=== PATIENT | female | born 1940 | race Caucasian/White ===

== ENCOUNTER 2017-04-12 10:07 | Emergency (ER) | payer MEDICARE, OTHER ==
[~2017-04-12] VITALS: Ht 165.1 cm; Wt 72.6 kg
--- NOTE | 2017-04-12 10:30 | NUR ---
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 SHE IS A/A/O X3.
[2017-04-12] MEDS ORDERED: VENL75CA62 PO (10:43)
[2017-04-12] MEDS ORDERED: DOCU100C36 PO (10:43)
[2017-04-12] MEDS ORDERED: PANT40TA4 PO (10:43)
[2017-04-12] MEDS ORDERED: ATOR10TA PO (10:43)
[2017-04-12] MEDS ORDERED: HYDR-3326 PO (10:43)
[2017-04-12] MEDS ORDERED: POLY255P2 PO (10:43)
[2017-04-12] MEDS ORDERED: LORA0.5T PO (10:43)
[2017-04-12] MEDS ORDERED: ASPI81TA31 PO (10:43)
[2017-04-12] MEDS ORDERED: DONE23TA3 PO (10:43)
[2017-04-12] MEDS ORDERED: [UNRECOGNIZED DRUG - CODE] TP (10:43)
[2017-04-12] MEDS ORDERED: DIVA500T54 PO (10:43)
[2017-04-12] MEDS ORDERED: MAG355OR42 PO (10:43)
[2017-04-12] MEDS ORDERED: ACET-73 PO (10:43)
[2017-04-12] MEDS ORDERED: GUAI120S17 PO (10:43)
[2017-04-12] MEDS ORDERED: TRAZ-147 PO (10:43)
[2017-04-12] MEDS ORDERED: LOSA50TA21 PO (10:43)
[2017-04-12] MEDS ORDERED: NEOM15OI3 TP (10:43)
[2017-04-12] MEDS ORDERED: LOPE1LIQ63 PO ×2 (10:43→10:45)
[2017-04-12] MEDS ORDERED: POTA10TA15 PO (10:43)
[2017-04-12 10:58] LABS: BASOPHILS # (AUTO) 0.3 K/uL (0.0-8.0); BASOPHILS % (AUTO) 3.4 % (0.0-2.0); EOSINOPHILS # (AUTO) 0.1 K/uL (0.0-0.7); EOSINOPHILS % (AUTO) 1.4 % (0.0-7.0); HEMATOCRIT 40.4 % (37-47); HEMOGLOBIN 13.2 G/DL (12.0-16.0); LYMPHOCYTES # (AUTO) 1.4 K/UL (0.8-4.8); LYMPHOCYTES % (AUTO) 18.4 % (20.5-51.5); MEAN CORPUSCULAR HEMOGLOBIN 28.7 UUG (27.0-31.0); MEAN CORPUSCULAR HGB CONC 33 g/dL (32.0-37.0); MONOCYTES # (AUTO) 0.5 K/UL (0.1-1.30); MONOCYTES % (AUTO) 6.4 % (0.0-11.0); NEUTROPHILS # (AUTO) 5.3 K/UL (1.8-8.9); NEUTROPHILS % (AUTO) 70.4 % (38.5-71.5); PLATELET COUNT (AUTO) 249 K/UL (150-450); RED BLOOD CELL COUNT(AUTO) 4.59 MIL/UL (4.2-5.4); WHITE BLOOD COUNT (AUTO) 7.6 K/UL (4.0-11.2)
[2017-04-12 11:08] LABS: CARBON DIOXIDE 33 mmol/L (21-32); CHLORIDE 102 mmol/L (98-107); CREATININE 1.4 mg/dL (0.6-1.3); GLUCOSE 110 mg/dL (74-106); POTASSIUM 3.6 mmol/L (3.5-5.1); UREA NITROGEN, BLOOD 25 mg/dL (7-18)
[2017-04-12 11:19] LABS: ALANINE AMINOTRANSFERASE 19 U/L (14-59); ALKALINE PHOSPHATASE 98 U/L (50-136); ASPARTATE AMINOTRANSFERASE 27 U/L (15-37); BILIRUBIN,DIRECT 0.1 mg/dL (0.0-0.2); BILIRUBIN,TOTAL 0.4 mg/dL (0.2-1.0); TOTAL PROTEIN, SERUM 7.4 g/dL (6.4-8.2)
--- NOTE | 2017-04-12 12:20 | NUR ---
AWAITING TEST RESULTS. PATIENT IS AWAKE AND ALERT WITH NO NEW COMPLAINTS.
[2017-04-12] MEDS ORDERED: IV NORMAL SALINE 1000 ML BAG IV ONE (12:30)
[2017-04-12] MEDS ORDERED: IV NORMAL SALINE 250 ML IV ONE (13:36)
[2017-04-12] MEDS ORDERED: IOHEXOL 350 100 ML INFUS..BTL ONE (13:36)
[2017-04-12] MEDS ORDERED: NORMAL SALINE FLUSH 10 ML DISP.SYRIN ONE (13:36)
--- NOTE | 2017-04-12 13:50 | NUR ---
PATIENT HAS A WELL WORKING IV IN HER HAND, BUT MICROCHIP SPECIALIST RAMONA STATES THE IV IS TOO SMALL (ITS A 22G) AND IT CANNOT BE IN THE HAND. I TRIED THREE TIMES TO PLACE A LARGER ONE IN HER UPPER ARM BUT WAS UNSUCCESSFUL. BARTOLOME RUSH LVN WAS ABLE TO PLACE A 22G IN HER RIGHT ARM RIGHT BELOW THE AC.
--- NOTE | 2017-04-12 14:34 | NUR ---
PATIENT'S ARM (SKIN) NEAR THE SECOND IV WHERE IV CONTRAST WAS INJECTED IS SLIGHTLY RED AND RAISED. I NOTIFIED DR DICKENS AND PER DIEM PHYSICAL THERAPIST ANGELIA (RAMONA IS OFF NOW). DR DICKENS AND ANGELIA BOTH EVALUATED THE SIGHT. I DC'D THE IV, CATHETER TIP WAS INTACT, PRESSURE APPLIED, DRESSING APPLED.
--- NOTE | 2017-04-12 15:54 | NUR ---
PATIENT WAS ABLE TO STAND AND TAKE SOME STEPS IN NO DISTRESS. DENIES PAIN.
--- NOTE | 2017-04-12 16:07 | NUR ---
IV DC'D, CATHETER TIP INTACT, PRESSURE APLLIED, DRESSING APPLIED. OBRIEN DC'D.
--- NOTE | 2017-04-12 16:37 | NUR ---
DC AND FOLLOW UP INSTRUCTIONS GIVEN AND EXPLAINED TO PATIENT AND BROTHER WHO STATE THEY UNDERSTAND ALL INSTRUCTIONS.
[2017-04-12 16:38] VITALS: BP 130/74
== END 2017-04-12 16:39 | disposition home or self-care (01) ==
LOC: ER 10:07
DX: M54.6 Pain in thoracic spine (principal); I10 Essential (primary) hypertension; K21.9 Gastro-esophageal reflux disease without esophagitis; F03.90 Unspecified dementia, unspecified severity, without behavioral disturbance, psychotic disturbance, mood disturbance, and anxiety; R07.89 Other chest pain; M79.89 Other specified soft tissue disorders; R26.2 Difficulty in walking, not elsewhere classified; M85.88 Other specified disorders of bone density and structure, other site; M16.0 Bilateral primary osteoarthritis of hip; M48.06 Spinal stenosis, lumbar region; K44.9 Diaphragmatic hernia without obstruction or gangrene
CPT/HCPCS: 36415; 70030-TC; 71010; 71275; 72192; 83605; 85025; 85651; 85730; 87040; 93005; A4663; J3490; J7030; J7050; Q9967

== ENCOUNTER 2017-06-21 19:28 | Inpatient (IN) | payer MEDICARE, OTHER ==
[~2017-06-21] VITALS: Ht 160 cm; Wt 72.6 kg
[~2017-06-21 19:28] MED LIST: ACET-73 PO; ASPI81TA31 PO; ATOR10TA PO; DIVA500T54 PO; DOCU100C36 PO; DONE23TA3 PO; GUAI120S17 PO; HYDR-3326 PO; LOPE1LIQ63 PO; LORA0.5T PO; LOSA50TA21 PO; MAG355OR42 PO; NEOM15OI3 TP; PANT40TA4 PO; POLY255P2 PO; POTA10TA15 PO; TRAZ-147 PO; VENL75CA62 PO; [UNRECOGNIZED DRUG - CODE] TP
[2017-06-21 20:00] VITALS: BP 140/78
--- NOTE | 2017-06-21 20:00 | NUR ---
Patient is a new admission from [facility] with diagnosis of Vertebral Compression Fx. 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 Received patient in bed. Alert and verbally responsive with some confusion. Able to make needs known. Denies any pain and discomfort at this time. No acute distress. No SOB. On room air. Kept clean and dry. Patient noted with multiple bruises on both left and right arm, abdomen and right lower leg. Also noted with wound on left lower foot. Wound consult needed for patient. Patient also noted with swelling in both lower extremities with +1 pitting edema. Spoke with brother Capo Clancy who is also the patients DPOA who provided me with a hx of the patient. He also mentioned that patient is a DNR/DNI, who I witnessed with another RN. Dr. Orosco made aware. Orders noted and carried out. Spoke with Dr. Catalino Jorge regarding patients medication, and MD to do med reconciliation. All needs attended to promptly. Call light within reach. Will continue to monitor.
[2017-06-21] MEDS ORDERED: HEPA500034 SUBCUT (22:02)
[2017-06-21] MEDS ORDERED: SILV400C TP (22:02)
[2017-06-21] MEDS ORDERED: VALS80TA2 PO (22:02)
[2017-06-21] MEDS ORDERED: HYDR-3980 PO (22:02)
[2017-06-21] MEDS ORDERED: VANC1PLA10 IV (22:02)
[2017-06-21] MEDS ORDERED: CEFT1FRO2 IV (22:02)
[2017-06-21] MEDS ORDERED: POLYETHYLENE GLYCOL 3350 238 GM POWDER PO PRN (22:30)
[2017-06-21] MEDS ORDERED: LORAZEPAM 0.5 MG TABLET PO PRN (22:30)
[2017-06-21] MEDS ORDERED: DOCUSATE SODIUM 100 MG CAPSULE PO PRN (22:30)
[2017-06-21] MEDS ORDERED: VANCOMYCIN IV 1 G in PREMIXED 0 EACH IV SCH (22:30)
[2017-06-21] MEDS ORDERED: CEFTRIAXONE 1 G in IV DEXTROSE 5% 50 ML IV SCH (22:30)
[2017-06-22] MEDS: HYDROCODONE/APAP 10-325 MG TABLET PO PRN ×3 (01:52→21:53)
[2017-06-22] MEDS ORDERED: HYDROCODONE/APAP 10-325 MG TABLET ONE (02:01)
--- NOTE | 2017-06-22 07:00 | NUR ---
Patient slept comfortably throughout the night. No c/o pain and discomfort at this time. No acute distress. No SOB. Kept clean and dry Handled gently. Diaper changed. Perineal care provided. All needs attended to promptly. Call light within reach. Will continue to monitor.
[2017-06-22 07:29] LABS: CARBON DIOXIDE 29 mmol/L (21-32); CHLORIDE 104 mmol/L (98-107); CREATININE 1.1 mg/dL (0.6-1.3); GLUCOSE 106 mg/dL (74-106); PHOSPHOROUS 3.5 mg/dL (2.5-4.9); POTASSIUM 3.8 mmol/L (3.5-5.1); UREA NITROGEN, BLOOD 14 mg/dL (7-18)
[2017-06-22 08:00] VITALS: BP 133/65
[2017-06-22 08:16] LABS: BASOPHILS % (AUTO) 0.7 % (0.0-2.0); EOSINOPHILS # (AUTO) 0.4 K/uL (0.0-0.7); EOSINOPHILS % (AUTO) 6.1 % (0.0-7.0); HEMATOCRIT 34.7 % (31.2-41.9); LYMPHOCYTES # (AUTO) 1.6 K/uL (20.0-40.0); LYMPHOCYTES % (AUTO) 24.2 % (20.5-51.5); MEAN CORPUSCULAR HEMOGLOBIN 30.5 uug (24.7-32.8); MEAN CORPUSCULAR HGB CONC 35 g/dL (32.3-35.6); MEAN CORPUSCULAR VOLUME 88.1 fL (75.5-95.3); MONOCYTES # (AUTO) 0.5 K/uL (2.0-10.0); MONOCYTES % (AUTO) 7.8 % (0.0-11.0); NEUTROPHILS # (AUTO) 4.1 K/uL (1.8-8.9); NEUTROPHILS % (AUTO) 61.2 % (38.5-71.5); PLATELET COUNT (AUTO) 312 K/uL (179-408); RED BLOOD CELL COUNT(AUTO) 3.94 MIL/uL (3.63-4.92); WHITE BLOOD COUNT (AUTO) 6.7 K/uL (3.8-11.8)
[2017-06-22] MEDS ORDERED: POTASSIUM CHLORIDE 20 MEQ TAB.PRT.SR PO SCH (09:00)
[2017-06-22] MEDS ORDERED: NEOMY/BACITRAC/POLYMI OINT 28.35 GM TUBE TP SCH (09:00)
[2017-06-22] MEDS ORDERED: DIVA250T47 PO (09:00)
[2017-06-22] MEDS ORDERED: LOSARTAN POTASSIUM 50 MG TABLET PO SCH (09:00)
[2017-06-22] MEDS: VALSARTAN 80 MG TABLET PO SCH (09:14)
[2017-06-22] MEDS: VENLAFAXINE XR 75 MG CAP.SR.24H PO SCH (09:14)
[2017-06-22] MEDS: ASPIRIN 81 MG TAB.CHEW PO SCH (09:14)
[2017-06-22] MEDS: ATORVASTATIN 10 MG TABLET PO SCH (09:14)
[2017-06-22] MEDS: SILVER SULFADIAZINE 1% CREAM 50 GM TP SCH (09:14)
[2017-06-22] MEDS: PANTOPRAZOLE SODIUM 40 MG TABLET.DR PO SCH (09:17)
[2017-06-22] MEDS: HEPARIN SODIUM,PORCINE 5,000 UNITS/ML VIAL SQ SCH ×2 (09:17→21:28)
--- NOTE | 2017-06-22 10:03 | NUR ---
pt seen on rounding. pt had elevated blood pressures. pt also confused and complaints of pain on movement. pt was not on back brace. back brace only used on trasfers. pt given meds for blood pressure along with am meds. pt took meds whole. no signs of aspiration. pt also given pain meds. blood pressure reassessed on 133s. wound assssessed. replaced bandage with sulfazaline treatment. applied mepilex and kirlix as ordered. pt also assessed by ot and pt therapy. pt is mod max assist on trasfers and max and bed mobility. will continue to assess.
[2017-06-22] MEDS ORDERED: MIRALAX 17 GM POWD.PACK PO PRN (12:50)
--- NOTE | 2017-06-22 16:34 | NUR ---
Clinical Pharmacy Note: Vancomycin Pharmacy to Dose Subjective: 76 y/o female pt transferred from [facility] with orders for vancomycin fro 7 more days. Last vanco dose at [facility] was on 06/21 at ~1400. Another 1gm dose was given at on 06/22 @0056. Objective: height 160 cm weight 72 kg BUN 14 Scr 1.1 WBC 6.7 temp 97.9 Assessment/Plan Due to multiple doses given last night and based on pt's age/renal fxn, no dose to be given today. Plan to start regimen of 1gm q27hr for estimated trough of 15.09. Checking random level with tomorrow am labs and if level ok, will start regimen. If renal fxn were to decrease, may dose per level instead. Will follow
[2017-06-22] MEDS: PIPERACILLIN/TAZOBACTAM/D5W 2.25 G in PREMIXED 1 EACH IV SCH (17:57)
[2017-06-22] MEDS ORDERED: TRAZODONE 100 MG TABLET PO SCH (18:00)
--- NOTE | 2017-06-22 18:09 | NUR ---
pt stable throughout the day. blood pressure remained stable. pt took meds whole. pt continues to be confused. pt also needs assistance with eating. pt refused lunch but ate dinner. pt shows tremors. pt continues to be agitated when moved in the bed. pt was put on iv medications for wound on odom most likely venous insufficiency. wound cleaned and applied antibiotics. will endorse to shift mechanic nurse.
--- NOTE | 2017-06-22 20:30 | NUR ---
Received pt on bed alert and awake, with episodes of confusion. Calm and cooperative to care. No acute distress noted. Breathing even and unlabored with normal respirations. Complained of 10/10 pain on her back, medicated with [place] PRN as ordered, well tolerated. kept clean, dry and comfortable. Call light within reach. All needs attended. will continue to monitor.
[2017-06-22 20:34] VITALS: BP 146/73
[2017-06-22] MEDS ORDERED: CEFTRIAXONE 1 G in IV DEXTROSE 5% 50 ML IV SCH (21:00)
[2017-06-22] MEDS ORDERED: DIVALPROEX ER 500 MG TAB.SR.24H PO SCH (21:00)
[2017-06-22] MEDS: TRAZODONE 100 MG TABLET PO SCH (21:27)
[2017-06-22] MEDS: DONEPEZIL 10 MG TABLET PO SCH (21:27)
[2017-06-22] MEDS: DIVALPROEX ER 250 MG TAB.SR.24H PO SCH (21:27)
--- NOTE | 2017-06-23 05:25 | NUR ---
Pt slept well throughout the shift. No s/s of distress noted. Relief of pain was noted. No SOB. IV on LUCIO intact and patent, no signs and symptoms of infection noted. Safety and fall precautions observed. Incontinent care rendered. Call light within reach. All needs met.
[2017-06-23] MEDS: PIPERACILLIN/TAZOBACTAM/D5W 2.25 G in PREMIXED 1 EACH IV SCH ×6 (06:08→23:31)
[2017-06-23] MEDS: PANTOPRAZOLE SODIUM 40 MG TABLET.DR PO SCH (06:34)
[2017-06-23 07:16] LABS: BASOPHILS % (AUTO) 0.5 % (0.0-2.0); EOSINOPHILS # (AUTO) 0.4 K/uL (0.0-0.7); EOSINOPHILS % (AUTO) 5.7 % (0.0-7.0); HEMATOCRIT 34.4 % (37-47); HEMOGLOBIN 11.1 G/DL (12.0-16.0); LYMPHOCYTES # (AUTO) 1.6 K/UL (0.8-4.8); LYMPHOCYTES % (AUTO) 25.8 % (20.5-51.5); MEAN CORPUSCULAR HEMOGLOBIN 28.7 UUG (27.0-31.0); MEAN CORPUSCULAR HGB CONC 32 g/dL (32.0-37.0); MEAN CORPUSCULAR VOLUME 88.8 FL (81.0-99.0); MONOCYTES # (AUTO) 0.6 K/UL (0.1-1.30); MONOCYTES % (AUTO) 10.1 % (0.0-11.0); NEUTROPHILS # (AUTO) 3.7 K/UL (1.8-8.9); NEUTROPHILS % (AUTO) 57.9 % (38.5-71.5); PLATELET COUNT (AUTO) 356 K/UL (150-450); RED BLOOD CELL COUNT(AUTO) 3.87 MIL/UL (4.2-5.4); WHITE BLOOD COUNT (AUTO) 6.3 K/UL (4.0-11.2)
[2017-06-23 07:18] VITALS: BP 149/71
[2017-06-23 07:38] LABS: CARBON DIOXIDE 28 mmol/L (21-32); CHLORIDE 105 mmol/L (98-107); CREATININE 1.4 mg/dL (0.6-1.3); GLUCOSE 117 mg/dL (74-106); MAGNESIUM 1.8 mg/dL (1.8-2.4); POTASSIUM 3.6 mmol/L (3.5-5.1); UREA NITROGEN, BLOOD 14 mg/dL (7-18)
--- NOTE | 2017-06-23 07:53 | NUR ---
PATIENT NOTED LAYING BED, AWAKE, SBAR RECEIVED FROM NIGHT NURSE, COMPLAINS OF PAIN 10/10, NO SIGNS OF DISTRESS NOTED, CALL LIGHT IN REACH, BED LOCKED AND IN LOWEST POSITION
[2017-06-23] MEDS: ASPIRIN 81 MG TAB.CHEW PO SCH (08:47)
[2017-06-23] MEDS: HYDROCODONE/APAP 10-325 MG TABLET PO PRN (08:48)
[2017-06-23] MEDS: VENLAFAXINE XR 75 MG CAP.SR.24H PO SCH (08:49)
[2017-06-23] MEDS: VALSARTAN 80 MG TABLET PO SCH (08:49)
[2017-06-23] MEDS: ATORVASTATIN 10 MG TABLET PO SCH (08:50)
[2017-06-23] MEDS: HEPARIN SODIUM,PORCINE 5,000 UNITS/ML VIAL SQ SCH ×2 (08:54→21:08)
[2017-06-23] MEDS ORDERED: VANCOMYCIN IV 1 G in PREMIXED 0 EACH IV ONE (09:00)
[2017-06-23] MEDS: SILVER SULFADIAZINE 1% CREAM 50 GM TP SCH (09:42)
--- NOTE | 2017-06-23 09:47 | NUR ---
[employer] CLARIFIED LEFT LOWER LEG WOUND TREATMENT ORDERS WITH DPM DR HUITRON. WOUND CARE WILL DEFER TO DPM AT THIS TIME. ALL DISCUSSED WITH STAFF NURSE VIA PHONE.
--- NOTE | 2017-06-23 12:44 | NUR ---
Clinical Pharmacy Note: Vancomycin Pharmacy to Dose Subjective: 76 y/o female pt transferred from [facility] with orders for vancomycin fro 7 more days. Last vanco dose at [facility] was on 06/21 at ~1400. Another 1gm dose was given at on 06/22 @0056. Objective: height 160 cm weight 72 kg BUN 14 Scr 1.4 WBC 6.3 temp 98.6 Random level: 6.7 today with am labs Assessment/Plan Although planned to start scheduled regimen if random level today was ok, due to increased Scr, renal fxn may not be stable. Will dose another vanco 1gm today at 0900. Ordered another random level with tomorrow am labs. Will re-dose as needed after checking level. Will follow
--- NOTE | 2017-06-23 19:30 | NUR ---
Seen patient during rounding, laying comfortable in bed, awake and verbally responsive. 0 pain as of this moment. Diaper changed with BM x1. Patient denies pain. Vital signs checked in stable in condition. No signs of respiratory distress. Placed call light in reach. Will continue to monitor the patient.
[2017-06-23 20:00] VITALS: BP 115/59
[2017-06-23] MEDS: DIVALPROEX ER 250 MG TAB.SR.24H PO SCH (21:01)
[2017-06-23] MEDS: TRAZODONE 100 MG TABLET PO SCH (21:02)
[2017-06-23] MEDS: LACTOBACILLUS RHAMNOSUS GG 1 EACH CAPSULE PO SCH (21:02)
[2017-06-23] MEDS: DONEPEZIL 10 MG TABLET PO SCH (21:02)
[2017-06-24] MEDS: HYDROCODONE/APAP 10-325 MG TABLET PO PRN ×2 (03:32→22:02)
[2017-06-24] MEDS: PIPERACILLIN/TAZOBACTAM/D5W 2.25 G in PREMIXED 1 EACH IV SCH ×4 (05:14→23:26)
[2017-06-24] MEDS: PANTOPRAZOLE SODIUM 40 MG TABLET.DR PO SCH (06:29)
[2017-06-24 06:58] LABS: BASOPHILS % (AUTO) 0.4 % (0.0-2.0); EOSINOPHILS # (AUTO) 0.4 K/uL (0.0-0.7); EOSINOPHILS % (AUTO) 3.8 % (0.0-7.0); HEMATOCRIT 33.8 % (31.2-41.9); HEMOGLOBIN 11.5 g/dL (10.9-14.3); LYMPHOCYTES # (AUTO) 1.6 K/uL (20.0-40.0); LYMPHOCYTES % (AUTO) 16.7 % (20.5-51.5); MEAN CORPUSCULAR HEMOGLOBIN 30.3 uug (24.7-32.8); MEAN CORPUSCULAR HGB CONC 34 g/dL (32.3-35.6); MONOCYTES # (AUTO) 0.7 K/uL (2.0-10.0); MONOCYTES % (AUTO) 7.1 % (0.0-11.0); NEUTROPHILS # (AUTO) 6.9 K/uL (1.8-8.9); PLATELET COUNT (AUTO) 297 K/uL (179-408); RED BLOOD CELL COUNT(AUTO) 3.79 MIL/uL (3.63-4.92); WHITE BLOOD COUNT (AUTO) 9.5 K/uL (3.8-11.8)
[2017-06-24 07:20] VITALS: BP 146/75
--- NOTE | 2017-06-24 07:20 | NUR ---
Patient slept the entire shift. Vitals are stable and not in respiratory distress. All due meds given. All needs attended to. Diaper changed, had BM this morning. Perineal care done. Call light in reach. Will endorse to AM nurse.
[2017-06-24 07:23] LABS: CARBON DIOXIDE 29 mmol/L (21-32); CHLORIDE 106 mmol/L (98-107); CREATININE 1.5 mg/dL (0.6-1.3); GLUCOSE 113 mg/dL (74-106); MAGNESIUM 1.8 mg/dL (1.8-2.4); PHOSPHOROUS 3.8 mg/dL (2.5-4.9); POTASSIUM 3.7 mmol/L (3.5-5.1); UREA NITROGEN, BLOOD 16 mg/dL (7-18)
--- NOTE | 2017-06-24 07:30 | NUR ---
Received patient in bed awake, verbally responsive, afebrile, not in any form of acute distress. She denies any pain or discomfort at this time. Call light placed within reach. Assisted to her needs.
[2017-06-24] MEDS ORDERED: VANCOMYCIN IV 1 G in PREMIXED 0 EACH IV ONE (09:00)
--- NOTE | 2017-06-24 09:41 | NUR ---
Clinical Pharmacy Note: Vancomycin Pharmacy to Dose Subjective: 76 y/o female pt transferred from [facility] with orders for vancomycin for 7 more days for LLL wound. Objective: height 160 cm weight 72 kg BUN 16 Scr 1.5 WBC 9.5 temp 98.1 Random level: 14.5 today with am labs Assessment/Plan Due to increased Scr, will continue to dose by fall off level. Will give vanco 1gm IVPB x1 today at 0900. Ordered another random level with tomorrow am labs. Will re-dose as needed after checking level. Will follow
[2017-06-24] MEDS: ATORVASTATIN 10 MG TABLET PO SCH (09:44)
[2017-06-24] MEDS: ASPIRIN 81 MG TAB.CHEW PO SCH (09:44)
[2017-06-24] MEDS: VENLAFAXINE XR 75 MG CAP.SR.24H PO SCH (09:44)
[2017-06-24] MEDS: LACTOBACILLUS RHAMNOSUS GG 1 EACH CAPSULE PO SCH ×2 (09:45→21:41)
[2017-06-24] MEDS: VALSARTAN 80 MG TABLET PO SCH (09:45)
[2017-06-24] MEDS: HEPARIN SODIUM,PORCINE 5,000 UNITS/ML VIAL SQ SCH ×2 (09:47→21:41)
[2017-06-24] MEDS: SILVER SULFADIAZINE 1% CREAM 50 GM TP SCH (10:01)
--- NOTE | 2017-06-24 15:35 | NUR ---
Dr. Partha Holliday came to see patient. did debridement of left lower leg wound then placed collagen dressing with order to leave adaptic layer intact, replace outer gauze daily and he'll follow up in 1 week. Patient and sister at bedside aware.
--- NOTE | 2017-06-24 19:30 | NUR ---
Seen patient during rounds, in bed, awake, alert and verbally responsive. Denies of pain. Vitals are stable, not in respiratory distress. Dressing on her wound is dry and intact. Midline IV assessed not signs of infiltration or redness. Safety measures provided. Call light placed in reach. Will continue to monitor the patient.
[2017-06-24] MEDS: DIVALPROEX ER 250 MG TAB.SR.24H PO SCH (21:41)
[2017-06-24] MEDS: DONEPEZIL 10 MG TABLET PO SCH (21:41)
[2017-06-24] MEDS: TRAZODONE 100 MG TABLET PO SCH (21:41)
--- NOTE | 2017-06-24 21:45 | NUR ---
Daiper changed per soiling. Priti care done. Patient complained of pain on her back. Assessed the patient, Vitals are stable BP 130/76,HR 76, RR 18, 96% room air. Per patient, pain level is 8/10.
--- NOTE | 2017-06-24 22:05 | NUR ---
[place] tab. PO given to the patient. Back brace in place per patient's request. Patient appreciated the help. Reminded the patient to use call light and placed it within her reach. Will continue to monitor the patient.
[2017-06-25] MEDS: PIPERACILLIN/TAZOBACTAM/D5W 2.25 G in PREMIXED 1 EACH IV SCH ×3 (05:33→17:55)
[2017-06-25] MEDS: PANTOPRAZOLE SODIUM 40 MG TABLET.DR PO SCH (06:17)
--- NOTE | 2017-06-25 07:03 | NUR ---
Patient slept the throughout the night. All IV ATB given, no signs of A/R. Denies of any discomfort or pain. Diaper changed, per soiling. Priti care done. All due meds given. All needs attended to. Provided safety measures. Call light within reach. Will endorse to morning shift nurse.
[2017-06-25] MEDS: LACTOBACILLUS RHAMNOSUS GG 1 EACH CAPSULE PO SCH ×2 (08:15→20:32)
[2017-06-25] MEDS: VENLAFAXINE XR 75 MG CAP.SR.24H PO SCH (08:15)
[2017-06-25] MEDS: ATORVASTATIN 10 MG TABLET PO SCH (08:15)
[2017-06-25] MEDS: VALSARTAN 80 MG TABLET PO SCH (08:16)
[2017-06-25] MEDS: HEPARIN SODIUM,PORCINE 5,000 UNITS/ML VIAL SQ SCH ×2 (08:21→20:31)
[2017-06-25] MEDS: ASPIRIN 81 MG TAB.CHEW PO SCH (08:21)
--- NOTE | 2017-06-25 08:30 | NUR ---
Received awake, alert x3/2. With periods of forgetfulness. Not in any form of distress.
[2017-06-25 08:46] VITALS: BP 151/75
[2017-06-25] MEDS: SILVER SULFADIAZINE 1% CREAM 50 GM TP SCH (09:00)
--- NOTE | 2017-06-25 09:00 | NUR ---
Up with physical therapy. Tolerating therapy well. Grimacing during transfers. With pain over lower back. PRN Tylenol given.
[2017-06-25] MEDS: ACETAMINOPHEN ES 500 MG TABLET PO PRN (09:02)
--- NOTE | 2017-06-25 09:05 | NUR ---
Silver sulfadiazine was not administered. Orders for wound dressing change to leave adaptic layer and only change outer dressing.
--- NOTE | 2017-06-25 10:17 | NUR ---
Clinical Pharmacy Note: Vancomycin Pharmacy to Dose Subjective: 76 y/o female pt transferred from [facility] with orders for vancomycin for 7 more days for LLL wound. Objective: height 160 cm weight 72 kg BUN 16 (06/24) Scr 1.5 (06/24) WBC 9.5 (06/24) temp 98 Random level: 18.6 today with am labs Assessment/Plan Due to increased Scr, will continue to dose by fall off level. Will give vanco 1gm IVPB x1 today at 1100. Ordered another random level with tomorrow at 1800. Will re-dose as needed after checking level. Will follow
[2017-06-25] MEDS ORDERED: VANCOMYCIN IV 1 G in PREMIXED 0 EACH IV ONE (11:00)
--- NOTE | 2017-06-25 15:25 | NUR ---
INTERDISCIPLINARY TEAM SUMMARY
[2017-06-25] MEDS: HYDROCODONE/APAP 10-325 MG TABLET PO PRN (18:05)
--- NOTE | 2017-06-25 18:06 | NUR ---
Pain over lower back rated as 10/10. PRN pain medication given
[2017-06-25] MEDS ORDERED: Z GUARD REMEDY PASTE 57 GM TUBE TOP PRN (19:15)
--- NOTE | 2017-06-25 19:30 | NUR ---
Received the patient in bed. Alert and verbally responsive. Able to make needs known. Denies any pain and discomfort. No acute distress. No SOB. Kept clean and dry. All needs attended to promptly. Call light within reach. Will continue to monitor.
[2017-06-25 20:00] VITALS: BP 144/66
[2017-06-25] MEDS: DIVALPROEX ER 250 MG TAB.SR.24H PO SCH (20:32)
[2017-06-25] MEDS: TRAZODONE 100 MG TABLET PO SCH (20:32)
[2017-06-25] MEDS: DONEPEZIL 10 MG TABLET PO SCH (20:32)
[2017-06-26] MEDS: PIPERACILLIN/TAZOBACTAM/D5W 2.25 G in PREMIXED 1 EACH IV SCH ×5 (00:43→23:55)
[2017-06-26] MEDS: PANTOPRAZOLE SODIUM 40 MG TABLET.DR PO SCH (06:07)
[2017-06-26 07:26] LABS: BASOPHILS % (AUTO) 0.1 % (0.0-2.0); EOSINOPHILS # (AUTO) 0.5 K/uL (0.0-0.7); EOSINOPHILS % (AUTO) 6.3 % (0.0-7.0); HEMATOCRIT 37.7 % (37-47); HEMOGLOBIN 12.4 G/DL (12.0-16.0); LYMPHOCYTES # (AUTO) 1.8 K/UL (0.8-4.8); LYMPHOCYTES % (AUTO) 24.8 % (20.5-51.5); MEAN CORPUSCULAR HEMOGLOBIN 29.7 UUG (27.0-31.0); MEAN CORPUSCULAR HGB CONC 33 g/dL (32.0-37.0); MEAN CORPUSCULAR VOLUME 89.8 FL (81.0-99.0); MONOCYTES # (AUTO) 0.5 K/UL (0.1-1.30); MONOCYTES % (AUTO) 7.6 % (0.0-11.0); NEUTROPHILS # (AUTO) 4.4 K/UL (1.8-8.9); NEUTROPHILS % (AUTO) 61.2 % (38.5-71.5); PLATELET COUNT (AUTO) 366 K/UL (150-450); WHITE BLOOD COUNT (AUTO) 7.2 K/UL (4.0-11.2)
[2017-06-26 08:01] LABS: ALANINE AMINOTRANSFERASE 25 U/L (14-59); ALKALINE PHOSPHATASE 118 U/L (50-136); ASPARTATE AMINOTRANSFERASE 24 U/L (15-37); BILIRUBIN,TOTAL 0.3 mg/dL (0.2-1.0); CARBON DIOXIDE 32 mmol/L (21-32); CHLORIDE 105 mmol/L (98-107); CHOLESTEROL 168 mg/dL (<200); CREATININE 1.5 mg/dL (0.6-1.3); GLUCOSE 94 mg/dL (74-106); HDL CHOLESTEROL 97 mg/dL (40-60); MAGNESIUM 2.2 mg/dL (1.8-2.4); PHOSPHOROUS 3.5 mg/dL (2.5-4.9); POTASSIUM 3.4 mmol/L (3.5-5.1); TOTAL PROTEIN, SERUM 7.4 g/dL (6.4-8.2); TRIGLYCERIDES 121 MG/DL (30-150); UREA NITROGEN, BLOOD 16 mg/dL (7-18)
[2017-06-26 08:15] LABS: THYROID STIMULATING HORMONE 2.086 mIU/mL (0.358-3.740)
[2017-06-26 08:24] VITALS: BP 146/42
[2017-06-26] MEDS: ASPIRIN 81 MG TAB.CHEW PO SCH (08:43)
[2017-06-26] MEDS: VENLAFAXINE XR 75 MG CAP.SR.24H PO SCH (08:43)
[2017-06-26] MEDS: LACTOBACILLUS RHAMNOSUS GG 1 EACH CAPSULE PO SCH ×2 (08:43→20:39)
[2017-06-26] MEDS: ATORVASTATIN 10 MG TABLET PO SCH (08:43)
[2017-06-26] MEDS: VALSARTAN 80 MG TABLET PO SCH (08:56)
[2017-06-26] MEDS: HEPARIN SODIUM,PORCINE 5,000 UNITS/ML VIAL SQ SCH ×2 (08:56→20:39)
[2017-06-26] MEDS ORDERED: MUPIROCIN 2% OINT 22 GM TUBE TP SCH (09:00)
[2017-06-26] MEDS ORDERED: SODIUM HYPOCHLORITE 0.125% 473 ML BOTTLE TP SCH (09:00)
[2017-06-26] MEDS ORDERED: GENTAMICIN SULFATE 0.1% OINT 15 GM TUBE TOP SCH (09:00)
--- NOTE | 2017-06-26 09:55 | NUR ---
DRSG NOTE SPOKE WITH MD RODRIGUEZ HE SAYS TO GO WITH HIS ORDERS HE IS FOLLOWING HER LEG AND WILL SEE HER IN A WEEK. D/C THE DRSG ORDERS FROM MD HUITRON. DO NOT REMOVE THE COLLAGEN DRSG. JUST CHANGE THE ABD AND KERLIX QD
[2017-06-26] MEDS ORDERED: POTASSIUM CHLORIDE 10 MEQ CAPSULE.SA PO ONE (12:00)
--- NOTE | 2017-06-26 12:29 | NUR ---
Clinical Pharmacy Note: Vancomycin Pharmacy to Dose Subjective: 76 y/o female pt transferred from [facility] with orders for vancomycin for 7 more days for LLL wound. Objective: height 160 cm weight 72 kg BUN 16 Scr 1.5 WBC 7.2 temp 98 Random level: Pending (due today at 1800) Assessment/Plan Due to increased Scr, will continue to dose by fall off level. Ordered another random level today at 1800. Will re-dose as needed after checking level. Will follow Addendum: 06/26/17 at 2003 by VALERIO ADAMS ADM LEVEL CAME BACK 17.1 WILL GIVE ANOTHER DOSE OF VANCOMYCIN 1GM x 1 AND WILL CONTINUE DOSING BY LEVEL
--- NOTE | 2017-06-26 19:30 | NUR ---
Received pt in bed, awake and watching TV. Verbally responsive and able to make needs known. Denies pain or discomfort at this time. No acute distress noted. All safety measures and fall precautions maintained. Call light within reach. Will continue to monitor.
[2017-06-26 20:00] VITALS: BP 129/79
[2017-06-26] MEDS ORDERED: VANCOMYCIN IV 1 G in PREMIXED 0 EACH IV SCH (20:15)
[2017-06-26] MEDS: TRAZODONE 100 MG TABLET PO SCH (20:39)
[2017-06-26] MEDS: DONEPEZIL 10 MG TABLET PO SCH (20:39)
[2017-06-26] MEDS: DIVALPROEX ER 250 MG TAB.SR.24H PO SCH (20:40)
--- NOTE | 2017-06-27 05:20 | NUR ---
Dressing change on L lower extremity as ordered by MD. Well tolerated. Will continue to monitor.
[2017-06-27] MEDS: PANTOPRAZOLE SODIUM 40 MG TABLET.DR PO SCH (06:03)
[2017-06-27] MEDS: PIPERACILLIN/TAZOBACTAM/D5W 2.25 G in PREMIXED 1 EACH IV SCH ×3 (06:03→17:47)
--- NOTE | 2017-06-27 06:51 | NUR ---
Pt slept intermittently throughout the evening. No acute distress noted. Denies pain or discomfort. Dressing change done on left lower extremity, well tolerated. No s/s adverse complications/infection, dry and intact. Collagen dressing intact. No drainage noted. Tolerated all medications well. Kept clean and dry. All needs attended to promptly. All safety measures and fall precautions maintained. Call light within reach. Will continue to monitor.
[2017-06-27 07:49] LABS: BASOPHILS # (AUTO) 0.1 K/uL (0.0-8.0); BASOPHILS % (AUTO) 0.7 % (0.0-2.0); EOSINOPHILS # (AUTO) 0.4 K/uL (0.0-0.7); EOSINOPHILS % (AUTO) 5.4 % (0.0-7.0); HEMATOCRIT 35.4 % (37-47); HEMOGLOBIN 11.7 G/DL (12.0-16.0); LYMPHOCYTES # (AUTO) 1.8 K/UL (0.8-4.8); LYMPHOCYTES % (AUTO) 22.2 % (20.5-51.5); MEAN CORPUSCULAR HEMOGLOBIN 29.7 UUG (27.0-31.0); MEAN CORPUSCULAR HGB CONC 33 g/dL (32.0-37.0); MEAN CORPUSCULAR VOLUME 89.8 FL (81.0-99.0); MONOCYTES # (AUTO) 0.7 K/UL (0.1-1.30); MONOCYTES % (AUTO) 8.4 % (0.0-11.0); NEUTROPHILS # (AUTO) 5.1 K/UL (1.8-8.9); NEUTROPHILS % (AUTO) 63.3 % (38.5-71.5); PLATELET COUNT (AUTO) 254 K/UL (150-450); RED BLOOD CELL COUNT(AUTO) 3.94 MIL/UL (4.2-5.4); WHITE BLOOD COUNT (AUTO) 8.1 K/UL (4.0-11.2)
[2017-06-27 08:02] LABS: ALANINE AMINOTRANSFERASE 22 U/L (14-59); ALKALINE PHOSPHATASE 112 U/L (50-136); ASPARTATE AMINOTRANSFERASE 34 U/L (15-37); BILIRUBIN,TOTAL 0.4 mg/dL (0.2-1.0); CARBON DIOXIDE 30 mmol/L (21-32); CHLORIDE 103 mmol/L (98-107); CREATINE KINASE, TOTAL 52 U/L (26-192); CREATININE 1.6 mg/dL (0.6-1.3); GLUCOSE 105 mg/dL (74-106); MAGNESIUM 2.1 mg/dL (1.8-2.4); POTASSIUM 3.6 mmol/L (3.5-5.1); TOTAL PROTEIN, SERUM 8.5 g/dL (6.4-8.2); UREA NITROGEN, BLOOD 17 mg/dL (7-18)
[2017-06-27 08:54] VITALS: BP 149/91
[2017-06-27] MEDS: ASPIRIN 81 MG TAB.CHEW PO SCH (08:56)
[2017-06-27] MEDS: ATORVASTATIN 10 MG TABLET PO SCH (08:56)
[2017-06-27] MEDS: VENLAFAXINE XR 75 MG CAP.SR.24H PO SCH (08:56)
[2017-06-27] MEDS: VALSARTAN 80 MG TABLET PO SCH (08:56)
[2017-06-27] MEDS: LACTOBACILLUS RHAMNOSUS GG 1 EACH CAPSULE PO SCH ×2 (08:56→21:09)
[2017-06-27] MEDS: HEPARIN SODIUM,PORCINE 5,000 UNITS/ML VIAL SQ SCH ×2 (08:57→21:09)
--- NOTE | 2017-06-27 10:00 | NUR ---
pt seen on rounding. pt bp elevated. pt given meds as prescribed. pt shows signs of confusion. midline intact and flushed. no signs of infiltration nor phebilitis noted. pt got up on her own. no bed alarm sounded. switched beds to ensure safety. pt instructed not to get up. pt verbalizes understanding but continues to need reorientation. will continue to monitor.
--- NOTE | 2017-06-27 14:10 | NUR ---
Clinical Pharmacy Note: Vancomycin Pharmacy to Dose Subjective: 76 y/o female pt transferred from [facility] with orders for vancomycin for 7 more days(through 06/27/17) for LLL wound. Objective: height 160 cm weight 72 kg BUN 17 Scr 1.6 WBC 8.1 temp 98 Random level: Pending (due today at 1800) Assessment/Plan Due to increased Scr, will continue to dose by fall off level. Ordered another random level today at 1800. Will re-dose as needed after checking level. Addendum: 06/27/17 at 2019 by BARTOLOME IZAGUIRRE RANDOM VANCOMYCIN LEVEL 23 NO VANCOMYCIN TODAY. REPEAT RANDOM LEVEL TOMORROW MORNING
--- NOTE | 2017-06-27 19:40 | NUR ---
pt stable throughout the day. pt continues to show signs of confusion. iv site intact. iv meds given. pt ate throughout the day. pt had visitors. changed diapers when needed. pt took meds whole. pt continues to complain of back pain . pain meds given. pt continues to shake. pt continues to ask for her boyfriend. no changes. vanco trough taken and awaiting results. will endorse to security shift manager nurse.
--- NOTE | 2017-06-27 19:45 | NUR ---
Received pt in bed, awake alert and watching television. Verbally responsive and able to make needs known. Denies pain or discomfort at this time. No acute distress noted. Midline on right upper extremity intact and patent. All safety measures and fall precautions maintained. Call light within reach. Will continue to monitor.
[2017-06-27 20:00] VITALS: BP 147/70
[2017-06-27] MEDS: DIVALPROEX ER 250 MG TAB.SR.24H PO SCH (21:09)
[2017-06-27] MEDS: TRAZODONE 100 MG TABLET PO SCH (21:09)
[2017-06-27] MEDS: DONEPEZIL 10 MG TABLET PO SCH (21:09)
[2017-06-28] MEDS: PIPERACILLIN/TAZOBACTAM/D5W 2.25 G in PREMIXED 1 EACH IV SCH ×4 (00:07→17:03)
[2017-06-28] MEDS: PANTOPRAZOLE SODIUM 40 MG TABLET.DR PO SCH (06:24)
[2017-06-28] MEDS: LOPERAMIDE HCL 2 MG CAPSULE PO PRN ×2 (06:24→08:27)
--- NOTE | 2017-06-28 07:50 | NUR ---
Pt slept intermittently throughout the evening. Denies pain or discomfort. No acute distress noted. Kept clean and dry. All needs attended to promptly. All safety measures and fall precautions maintained. Will continue to monitor. Call light within reach.
[2017-06-28 08:22] VITALS: BP 154/82
[2017-06-28] MEDS: HEPARIN SODIUM,PORCINE 5,000 UNITS/ML VIAL SQ SCH ×2 (08:23→21:33)
[2017-06-28] MEDS: HYDROCODONE/APAP 10-325 MG TABLET PO PRN (08:27)
[2017-06-28] MEDS: LACTOBACILLUS RHAMNOSUS GG 1 EACH CAPSULE PO SCH ×2 (08:27→21:31)
[2017-06-28] MEDS: ATORVASTATIN 10 MG TABLET PO SCH (08:27)
[2017-06-28] MEDS: VENLAFAXINE XR 75 MG CAP.SR.24H PO SCH (08:27)
[2017-06-28] MEDS: VALSARTAN 80 MG TABLET PO SCH (08:27)
[2017-06-28] MEDS: ASPIRIN 81 MG TAB.CHEW PO SCH (08:27)
--- NOTE | 2017-06-28 19:29 | NUR ---
Received sleeping in bed. No s/s of distress noted. Respirations even and unlabored. Call light within reach. Will continue to monitor.
[2017-06-28 19:53] VITALS: BP 156/71
[2017-06-28] MEDS: TRAZODONE 100 MG TABLET PO SCH (21:31)
[2017-06-28] MEDS: DONEPEZIL 10 MG TABLET PO SCH (21:31)
[2017-06-28] MEDS: DIVALPROEX ER 250 MG TAB.SR.24H PO SCH (21:32)
[2017-06-29] MEDS: PIPERACILLIN/TAZOBACTAM/D5W 2.25 G in PREMIXED 1 EACH IV SCH ×4 (00:49→17:35)
[2017-06-29] MEDS: PANTOPRAZOLE SODIUM 40 MG TABLET.DR PO SCH (06:15)
--- NOTE | 2017-06-29 06:46 | NUR ---
Patient awake, no complaints of pain. Kept clean and comfortable. Slept well through the night. Frequent checks done to ensure safety. No s/s of distress. Needs attended. Due meds given. Call light kept within reach. Endorsed accordingly.
--- NOTE | 2017-06-29 07:01 | NUR ---
IV ATBs infused well. IV site patent and intact. No signs of infiltration noted.
[2017-06-29] MEDS: LACTOBACILLUS RHAMNOSUS GG 1 EACH CAPSULE PO SCH ×2 (08:55→21:14)
[2017-06-29] MEDS: ATORVASTATIN 10 MG TABLET PO SCH (08:55)
[2017-06-29] MEDS: VENLAFAXINE XR 75 MG CAP.SR.24H PO SCH (08:56)
[2017-06-29] MEDS: ASPIRIN 81 MG TAB.CHEW PO SCH (08:56)
[2017-06-29] MEDS: VALSARTAN 80 MG TABLET PO SCH (08:56)
[2017-06-29] MEDS: HEPARIN SODIUM,PORCINE 5,000 UNITS/ML VIAL SQ SCH ×2 (08:58→21:16)
[2017-06-29] MEDS: HYDROCODONE/APAP 10-325 MG TABLET PO PRN ×2 (09:03→15:19)
[2017-06-29 09:06] LABS: VIT D, 25-HYDROXY 30.2 ng/mL (30.0-100.0)
--- NOTE | 2017-06-29 19:30 | NUR ---
PT RESTING IN BED. NO DISTRESS NOTED. MIDLINE INTACT AND PATENT. CLEAN AND DRY. TURNED AND REPOSITIONED. DENIES PAIN. SAFETY MAINTAINED. CALL LIGHT WITHIN REACH. WILL CONTINUE TO MONITOR.
[2017-06-29 20:00] VITALS: BP 127/62
[2017-06-29] MEDS: DONEPEZIL 10 MG TABLET PO SCH (21:14)
[2017-06-29] MEDS: DIVALPROEX ER 250 MG TAB.SR.24H PO SCH (21:14)
[2017-06-29] MEDS: TRAZODONE 100 MG TABLET PO SCH (21:14)
[2017-06-30] MEDS: PIPERACILLIN/TAZOBACTAM/D5W 2.25 G in PREMIXED 1 EACH IV SCH ×3 (00:28→11:45)
[2017-06-30] MEDS: PANTOPRAZOLE SODIUM 40 MG TABLET.DR PO SCH (06:21)
--- NOTE | 2017-06-30 06:59 | NUR ---
PT RESTING IN BED. NO DISTRESS NOTED. MIDLINE INTACT AND PATENT. PT SLEPT WELL THROUGHOUT THE NIGHT. CLEAN AND DRY. TURNED AND REPOSITIONED. SAFETY MAINTAINED. CALL LIGHT WITHIN REACH.
[2017-06-30 07:06] LABS: ALBUMIN 3.2 g/dL (2.9-4.4); ALPHA-1-GLOBULIN 0.4 g/dL (0.0-0.4); BETA GLOBULIN 0.8 g/dL (0.7-1.3); GAMMA GLOBULIN 1.1 g/dL (0.4-1.8); GLOBULIN, TOTAL 3.3 g/dL (2.2-3.9); M-SPIKE Not Observed g/dL (Not Observed)
--- NOTE | 2017-06-30 07:30 | NUR ---
PATIENT NOTED IN BED SLEEPING, NO SIGNS OF DISTRESS, COMPLAINTS OF PAIN 5/10, CALL LIGHT IN REACH, BED LOCKED AN IN LOWEST POSITION.
[2017-06-30 07:55] VITALS: BP 148/92
[2017-06-30] MEDS: HYDROCODONE/APAP 10-325 MG TABLET PO PRN ×2 (08:56→20:46)
[2017-06-30] MEDS: LACTOBACILLUS RHAMNOSUS GG 1 EACH CAPSULE PO SCH ×2 (08:56→20:44)
[2017-06-30] MEDS: VENLAFAXINE XR 75 MG CAP.SR.24H PO SCH (08:56)
[2017-06-30] MEDS: VALSARTAN 80 MG TABLET PO SCH (08:57)
[2017-06-30] MEDS: ATORVASTATIN 10 MG TABLET PO SCH (08:57)
[2017-06-30] MEDS: ASPIRIN 81 MG TAB.CHEW PO SCH (08:57)
[2017-06-30] MEDS: HEPARIN SODIUM,PORCINE 5,000 UNITS/ML VIAL SQ SCH ×2 (08:58→20:48)
[2017-06-30 12:07] LABS: CALCITRIOL VIT D,1,25 DIHYDROX 25.4 pg/mL (19.9-79.3)
--- NOTE | 2017-06-30 14:47 | NUR ---
Patient noted wandering unit, patient states she is bored and wants to walk, history of dementia noted, md martinez notified with orders for a 1 to 1 sitter and a psych consult.
--- NOTE | 2017-06-30 19:30 | NUR ---
Patient seen during rounds, flat on bed, awake and verbally responsive. Vital signs stable BP 146/77, T 97.9, P 83, R 20, O2 sat room air 97. Pitting edema noted on L and R ankle +1, elevated both feet with pillow. Mid line IV access checked with no signs of redness or infection. Noted dressing on L lower extremity, dry and intact. Safety measures provided. Sitter at bedside.
[2017-06-30 19:53] VITALS: BP 146/77
[2017-06-30] MEDS: DONEPEZIL 10 MG TABLET PO SCH (20:45)
--- NOTE | 2017-06-30 20:45 | NUR ---
Resident complained of back pain, with 10/10 as her pain level. [place] 10/325mg PO given. Will continue to monitor the patient.
[2017-06-30] MEDS: DIVALPROEX ER 250 MG TAB.SR.24H PO SCH (20:49)
[2017-06-30] MEDS: TRAZODONE 100 MG TABLET PO SCH (20:54)
[2017-07-01] MEDS: PANTOPRAZOLE SODIUM 40 MG TABLET.DR PO SCH (06:35)
[2017-07-01] MEDS: ACETAMINOPHEN ES 500 MG TABLET PO PRN (07:00)
--- NOTE | 2017-07-01 07:07 | NUR ---
Patient slept after taking [place] until 6am. Sitter at bedside. Assisted patient in going to the bathroom. Vital signs are stable, no respiratory distress noted. Patient complained of headache, tylenol 500 mg PO given. All due meds given. All needs attended to. Will endorse to next shift nurse.
--- NOTE | 2017-07-01 08:30 | NUR ---
Received patient awake, sitting in chair alert, awake x3. Not agitated. With sitter at bedside. No pain noted. Not in apparent distress.
[2017-07-01 08:42] VITALS: BP 147/79
[2017-07-01] MEDS: LACTOBACILLUS RHAMNOSUS GG 1 EACH CAPSULE PO SCH ×2 (08:58→20:51)
[2017-07-01] MEDS: VALSARTAN 40 MG TABLET PO SCH (08:58)
[2017-07-01] MEDS: ASPIRIN 81 MG TAB.CHEW PO SCH (08:58)
[2017-07-01] MEDS: METOPROLOL TARTRATE 25 MG TABLET PO SCH ×2 (08:58→20:51)
[2017-07-01] MEDS: VENLAFAXINE XR 75 MG CAP.SR.24H PO SCH (08:58)
[2017-07-01] MEDS: ATORVASTATIN 10 MG TABLET PO SCH (08:58)
--- NOTE | 2017-07-01 11:23 | NUR ---
Up with occupational therapy, tolerating therapy well.
--- NOTE | 2017-07-01 18:38 | NUR ---
With sitter at bedside. Not in any pain. Not in any from of distress
--- NOTE | 2017-07-01 19:30 | NUR ---
Received patient laying flat on bed, awake, alert and verbally responsive. Assisted patient to repositioned her comfortably while on bed, elevated lower extremities with pillows. Vital signs are stable T 97.9, P 75, R 19, BP 155/63, O2 96% on room air. Safety measures provided. Sitter at bedside.
[2017-07-01] MEDS: TRAZODONE 100 MG TABLET PO SCH (20:51)
[2017-07-01] MEDS: DIVALPROEX ER 250 MG TAB.SR.24H PO SCH (20:51)
[2017-07-01] MEDS: DONEPEZIL 10 MG TABLET PO SCH (20:52)
--- NOTE | 2017-07-02 06:01 | NUR ---
Patient still in bed, sleeping and able to sleep the entire night. Denies of pain. Breathing even and non labored. Safety measures provided. Sitter still at bedside. Will endorse to AM shift nurse.
[2017-07-02] MEDS: PANTOPRAZOLE SODIUM 40 MG TABLET.DR PO SCH (06:19)
--- NOTE | 2017-07-02 07:43 | NUR ---
patient noted resting in bed with eyes closed, 1:1 sitter at bed side, no complaints of pain, no signs of distress, call light in reach, bed locked and in lowest position
[2017-07-02 08:05] VITALS: BP 147/79
[2017-07-02] MEDS: ASPIRIN 81 MG TAB.CHEW PO SCH (08:39)
[2017-07-02] MEDS: VENLAFAXINE XR 75 MG CAP.SR.24H PO SCH (08:39)
[2017-07-02] MEDS: VALSARTAN 40 MG TABLET PO SCH (08:40)
[2017-07-02] MEDS: HYDROCODONE/APAP 10-325 MG TABLET PO PRN (08:40)
[2017-07-02] MEDS: ATORVASTATIN 10 MG TABLET PO SCH (08:40)
[2017-07-02] MEDS: LACTOBACILLUS RHAMNOSUS GG 1 EACH CAPSULE PO SCH ×2 (08:40→21:03)
[2017-07-02] MEDS: LOPERAMIDE HCL 2 MG CAPSULE PO PRN (08:40)
[2017-07-02] MEDS: METOPROLOL TARTRATE 25 MG TABLET PO SCH ×2 (08:41→21:09)
--- NOTE | 2017-07-02 15:19 | NUR ---
interdisciplinary team summary
--- NOTE | 2017-07-02 19:36 | NUR ---
Received patient on bed on moderate high back position, awake and was watching TV. Vitals are taken BP 134/74, T 98.5,P 77, R 18, O2 94% room air. No signs of respiratory distress. Safety measures provided. Per patient, pain level is 3/10, back pain. Non pharmacological interventions provided and pillows placed on his back. Sitter at bedside.
[2017-07-02] MEDS: DIVALPROEX ER 250 MG TAB.SR.24H PO SCH (21:02)
[2017-07-02] MEDS: DONEPEZIL 10 MG TABLET PO SCH (21:03)
[2017-07-02] MEDS: TRAZODONE 100 MG TABLET PO SCH (21:03)
[2017-07-02 21:31] VITALS: BP 134/74
[2017-07-03] MEDS: HYDROCODONE/APAP 10-325 MG TABLET PO PRN ×2 (00:54→08:21)
--- NOTE | 2017-07-03 00:55 | NUR ---
Lori informed me that patient is up seemed irritable. Went inside the room and did assessment. Per patient,she feels uncomfortable and can't go back to sleep because her back is aching. Patient expressed of concern that she can't rest well tonight due to her discomforts. Offered her pain med., [place] 10/325mg given. Will continue to monitor the patient. Sitter still at bedside.
--- NOTE | 2017-07-03 03:43 | NUR ---
Patient appeared confused and was very agitated. She said she didn't like her sitter. She said that she never liked the sitter ever since. Explained to the patient that the sitter that she had now was her sitter for 3 nights now. She still keeps saying she never him and that she doesn't want the sitter to be in her room. Asked the sitter to just stay outside the room for the meantime while patient is still very agitated. Stayed with the patient at bedside ans after 3o mins patient calmed down.
--- NOTE | 2017-07-03 04:36 | NUR ---
Patient complained she had a headache. Facial grimacing noted and was touching her forehead at the same time. 4/10 for her pain scale. Offered to give her pain med, Tylenol 500mg PO given. Will continue to monitor the patient. Will be staying at patient's bedside for now until patient will go back to sleep again. For now, sitter stayed outside the room by the door.
[2017-07-03] MEDS: ACETAMINOPHEN ES 500 MG TABLET PO PRN (04:39)
--- NOTE | 2017-07-03 06:43 | NUR ---
Patient appeared calmer now than before. She was talking again to the sitter. She requested for diaper change, changed per soiling. Vital signs are stable, no acute distress noted. Will endorse to the next AM nurse.
[2017-07-03] MEDS: PANTOPRAZOLE SODIUM 40 MG TABLET.DR PO SCH (07:00)
--- NOTE | 2017-07-03 07:49 | NUR ---
PATIENT NOTED LAYING IN BED WITH EYES OPEN, 1:1 SITTER PRESENT, NO COMPLAINTS OF PAIN, NO SIGNS OF DISTRESS, CALL LIGHT IN REACH, BED LOCKED AND IN LOWEST POSITION, BED SIDE REPORT RECEIVED AT THIS TIME
[2017-07-03] MEDS: ATORVASTATIN 10 MG TABLET PO SCH (08:20)
[2017-07-03] MEDS: ASPIRIN 81 MG TAB.CHEW PO SCH (08:20)
[2017-07-03] MEDS: LACTOBACILLUS RHAMNOSUS GG 1 EACH CAPSULE PO SCH ×2 (08:20→20:41)
[2017-07-03] MEDS: DIVALPROEX 125 MG TABLET.DR PO SCH (08:21)
[2017-07-03] MEDS: VENLAFAXINE XR 75 MG CAP.SR.24H PO SCH (08:21)
[2017-07-03] MEDS: METOPROLOL TARTRATE 25 MG TABLET PO SCH ×2 (08:22→20:42)
[2017-07-03] MEDS: VALSARTAN 40 MG TABLET PO SCH (08:22)
[2017-07-03 08:49] VITALS: BP 155/68
--- NOTE | 2017-07-03 19:15 | NUR ---
Received pt in bed, awake and watching television. Sitter at bedside. Verbally responsive and able to make needs known. Denies pain or discomfort at this time. No acute distress noted. All safety measures and fall precautions maintained. Call light within reach. Will continue to monitor.
[2017-07-03] MEDS: TRAZODONE 100 MG TABLET PO SCH (20:41)
[2017-07-03] MEDS: DIVALPROEX ER 250 MG TAB.SR.24H PO SCH (20:41)
[2017-07-03] MEDS: DONEPEZIL 10 MG TABLET PO SCH (20:41)
--- NOTE | 2017-07-04 06:06 | NUR ---
Patient slept comfortably throughout most of the evening. Sitter at bedside. No acute distress noted. Denies pain or discomfort. Tolerated all medications well. Kept clean and dry. All needs met promptly. All safety measures and fall precautions maintained. Call light within reach. Will endorse to AM shift.
[2017-07-04] MEDS: PANTOPRAZOLE SODIUM 40 MG TABLET.DR PO SCH (06:17)
[2017-07-04] MEDS: HYDROCODONE/APAP 10-325 MG TABLET PO PRN (06:18)
[2017-07-04 07:40] VITALS: BP 124/49
[2017-07-04] MEDS: ASPIRIN 81 MG TAB.CHEW PO SCH (08:30)
[2017-07-04] MEDS: VENLAFAXINE XR 75 MG CAP.SR.24H PO SCH (08:30)
[2017-07-04] MEDS: METOPROLOL TARTRATE 25 MG TABLET PO SCH ×2 (08:30→20:40)
[2017-07-04] MEDS: ATORVASTATIN 10 MG TABLET PO SCH (08:31)
[2017-07-04] MEDS: VALSARTAN 40 MG TABLET PO SCH (08:31)
[2017-07-04] MEDS: DIVALPROEX 125 MG TABLET.DR PO SCH (08:31)
[2017-07-04] MEDS: LACTOBACILLUS RHAMNOSUS GG 1 EACH CAPSULE PO SCH ×2 (08:31→20:40)
--- NOTE | 2017-07-04 09:01 | NUR ---
pt seen on rounding. pt still confused. sitter at bedside. pt complains of pain on back. pt was given norco and not due. pt provided comfort measures. pt offered breakfast and ate. pt given meds as prescribed. pt bp improved compared to previous trends of hn. pt took meds whole. pt had a bm and voided with assist. will continue to monitor.
--- NOTE | 2017-07-04 15:47 | NUR ---
I Agree Addendum: 07/04/17 at 1548 by NGUYEN JACOME OT Amended: Links added.
--- NOTE | 2017-07-04 18:38 | NUR ---
pt stable throughout the day. pt seen by family. pt also seen by pt to assess a left curve leg as stated by family. family states that this may be a reason why pt has frequent falls. pt seen by PT. PT states that pt has steadier gait that the curvature on leg might be resulted by osteoarthritis. notified about request to have leg x ray done. md states he will check the pt tomorrow.
--- NOTE | 2017-07-04 19:30 | NUR ---
Received pt in bed, appearing to be asleep. Sitter at bedside. No acute distress noted. Easily arousable to light touch and verbal stimuli. Able to make needs known. Denies pain or discomfort at this time. All safety measures and fall precautions maintained. Call light within reach. Will continue to monitor.
[2017-07-04 20:00] VITALS: BP 127/69
[2017-07-04] MEDS: DONEPEZIL 10 MG TABLET PO SCH (20:40)
[2017-07-04] MEDS: DIVALPROEX ER 250 MG TAB.SR.24H PO SCH (20:40)
[2017-07-04] MEDS: TRAZODONE 100 MG TABLET PO SCH (20:40)
[2017-07-05] MEDS: ACETAMINOPHEN ES 500 MG TABLET PO PRN ×3 (02:27→16:07)
[2017-07-05] MEDS: PANTOPRAZOLE SODIUM 40 MG TABLET.DR PO SCH (06:27)
--- NOTE | 2017-07-05 06:57 | NUR ---
Slept comfortably throughout the evening. Sitter at bedside. No acute distress noted. Denies pain or discomfort. All due medications given as ordered, well tolerated. Kept clean and dry. All needs met promptly. All safety measures and fall precautions maintained. Call light within reach. Will endorse to next shift.
[2017-07-05 07:30] VITALS: BP 134/90
--- NOTE | 2017-07-05 08:10 | NUR ---
Received patient awake, alert x2. Sitting in wheel chair with sitter at bed side. No in apparent distress.
--- NOTE | 2017-07-05 08:30 | NUR ---
With low back pain rated as 9/10. Tylenol PRN given. Up with physical therapy.
[2017-07-05] MEDS: LACTOBACILLUS RHAMNOSUS GG 1 EACH CAPSULE PO SCH ×2 (08:37→20:36)
[2017-07-05] MEDS: ATORVASTATIN 10 MG TABLET PO SCH (08:37)
[2017-07-05] MEDS: DIVALPROEX 125 MG TABLET.DR PO SCH (08:37)
[2017-07-05] MEDS: VENLAFAXINE XR 75 MG CAP.SR.24H PO SCH (08:38)
[2017-07-05] MEDS: ASPIRIN 81 MG TAB.CHEW PO SCH (08:38)
[2017-07-05] MEDS: VALSARTAN 40 MG TABLET PO SCH (08:38)
[2017-07-05] MEDS: METOPROLOL TARTRATE 25 MG TABLET PO SCH ×2 (08:38→20:37)
--- NOTE | 2017-07-05 16:51 | NUR ---
Alert, awake x3. With friend at bedside. With pain over lower back rated as 9/10. Not in any form of distress. With sitter at bedside
--- NOTE | 2017-07-05 18:48 | NUR ---
Dressing changed over right lower leg done as ordered
--- NOTE | 2017-07-05 20:00 | NUR ---
Received pt on bed asleep. No s/s of distress noted. No complaints of pain or discomfort. No SOB noted. Sitter at bedside. Fall and safety precautions observed and maintained. Vital signs stable. Kept clean, dry and comfortable. Call light within reach. All needs met. Will continue to monitor.
[2017-07-05 20:31] VITALS: BP 122/61
[2017-07-05] MEDS: DONEPEZIL 10 MG TABLET PO SCH (20:36)
[2017-07-05] MEDS: TRAZODONE 100 MG TABLET PO SCH (20:36)
[2017-07-05] MEDS: DIVALPROEX ER 250 MG TAB.SR.24H PO SCH (20:37)
--- NOTE | 2017-07-05 21:30 | NUR ---
CHANGE OF ASSIGNMENT GIVEN. REPORT GIVEN BY DRY CURE WORKER RN. PT RESTING IN BED. NO DISTRESS NOTED. COMPLIANT WITH NURSING CARE. 1:1 SITTER AT BEDSIDE FOR SAFETY. CLEAN AND DRY. TURNED AND REPOSITIONED. SAFETY MAINTAINED. CALL LIGHT WITHIN REACH. WILL CONTINUE TO MONITOR.
[2017-07-06] MEDS: PANTOPRAZOLE SODIUM 40 MG TABLET.DR PO SCH (06:29)
[2017-07-06] MEDS: ACETAMINOPHEN ES 500 MG TABLET PO PRN (06:29)
--- NOTE | 2017-07-06 06:49 | NUR ---
PT ALERT AND ORIENTED IN BED. NO DISTRESS NOTED. COMPLAINT WITH NURSING CARE. CLEAN AND DRY. TURNED AND REPOSITIONED. 1:1 SITTER AT BEDSIDE. SAFETY MAINTAINED. CALL LIGHT WITHIN REACH.
[2017-07-06 07:10] VITALS: BP_SYST 130; BP_SYST 139; BP_DIAS 62; BP_DIAS 67
--- NOTE | 2017-07-06 07:30 | NUR ---
Received patient awake, verbally responsive, not in any form of acute distress. She denies any pain or discomfort at this time. Assisted to her needs. Addendum: 07/06/17 at 0915 by VIDAL LUCIANO RN Sitter at bedside.
[2017-07-06] MEDS: VALSARTAN 40 MG TABLET PO SCH (08:32)
[2017-07-06] MEDS: METOPROLOL TARTRATE 25 MG TABLET PO SCH ×2 (08:33→20:36)
[2017-07-06] MEDS: VENLAFAXINE XR 75 MG CAP.SR.24H PO SCH (08:33)
[2017-07-06] MEDS: DIVALPROEX 125 MG TABLET.DR PO SCH (08:33)
[2017-07-06] MEDS: ATORVASTATIN 10 MG TABLET PO SCH (08:33)
[2017-07-06] MEDS: ASPIRIN 81 MG TAB.CHEW PO SCH (08:33)
[2017-07-06] MEDS: LACTOBACILLUS RHAMNOSUS GG 1 EACH CAPSULE PO SCH ×2 (08:34→20:35)
[2017-07-06] MEDS: LOPERAMIDE HCL 2 MG CAPSULE PO PRN (16:44)
--- NOTE | 2017-07-06 20:00 | NUR ---
Received pt awake and alert. No acute distress noted. Sitter at bedside. Denies pain. No SOB noted. Due meds given as ordered and well tolerated. Bed alarm on. Kept clean, dry and comfortable. Vital signs stable. All needs met Addendum: 07/06/17 at 2154 by SCOTTY WARD RN Dressing changed as ordered, tolerated procedure well.
[2017-07-06 20:04] VITALS: BP 139/60
[2017-07-06] MEDS: TRAZODONE 100 MG TABLET PO SCH (20:35)
[2017-07-06] MEDS: DONEPEZIL 10 MG TABLET PO SCH (20:35)
[2017-07-06] MEDS: DIVALPROEX ER 250 MG TAB.SR.24H PO SCH (20:36)
--- NOTE | 2017-07-07 05:49 | NUR ---
Pt slept well throughout the night. No acute distress noted. Incontinent care rendered. Sitter at bedside. Call light placed within reach. All needs met.
[2017-07-07] MEDS: PANTOPRAZOLE SODIUM 40 MG TABLET.DR PO SCH (06:14)
--- NOTE | 2017-07-07 07:15 | NUR ---
Received patient asleep, lying on bed on a semi-prabhakar's position with no SOB distress or discomforts noted at this time. Easily aroused with 1:1 sitter at bedside. call light within reach. Will continue to monitor.
[2017-07-07 08:00] VITALS: BP 154/78
[2017-07-07] MEDS: LACTOBACILLUS RHAMNOSUS GG 1 EACH CAPSULE PO SCH (08:44)
[2017-07-07] MEDS: ATORVASTATIN 10 MG TABLET PO SCH (08:44)
[2017-07-07] MEDS: VENLAFAXINE XR 75 MG CAP.SR.24H PO SCH (08:44)
[2017-07-07] MEDS: VALSARTAN 40 MG TABLET PO SCH (08:44)
[2017-07-07] MEDS: DIVALPROEX 125 MG TABLET.DR PO SCH (08:44)
[2017-07-07] MEDS: ASPIRIN 81 MG TAB.CHEW PO SCH (08:44)
[2017-07-07 09:22] VITALS: BP 154/78
[2017-07-07] MEDS: METOPROLOL TARTRATE 25 MG TABLET PO SCH (09:22)
--- NOTE | 2017-07-07 11:15 | NUR ---
Received new order from Dr. Orosco to discharge the patient back to [facility]. Orders noted and carried out.
--- NOTE | 2017-07-07 11:37 | NUR ---
PATIENT WAS DISCHARGED BACK TO [facility], ACCOMPANIED BY HER SISTER MICHELLE IN STABLE CONDITION. ALL BELONGINGS WERE COMPLETE. NO MISSING ITEMS. HEALTH TEACHINGS WERE GIVEN TO PATIENT'S SISTER, VERBALIZED UNDERSTANDING. WOUND CARE TREATMENT DONE. WOUND PICTURE WAS TAKE, FILED IN THE CHART, REMOVED PATIENT'S RIGHT UPPER ARM MIDLINE GAUGE [address] ROLDAN PRIOR TO DISCHARGE, LUMEN NOTED INTACT WITH SMOOTH EDGES, NO BLEEDING OR NOTED ANY SIGNS AND SYMPTOMS OF INFECTIONS ON THE SITE, APPLIED PRESSURE COVERED WITH GAUZE SECURE WITH TRANSPARENT DRESSING SISTER AT BEDSIDE AND ANOTHER RN WITNESS. PATIENT WAS ACCOMPANIED BY SPINNING FRAME FIXER VIA WHEELCHAIR TO PRIVATE VEHICLE IN STABLE CONDITION, NO SOB OR DISTRESS OR ANY DISCOMFORTS NOTED. INSTRUCTED THE PATIENT'S SISTER THAT PATIENT NEEDS TO BE SEEN BY PCP AND DR. RODRIGUEZ AFTER DISCHARGE FOR FOLLOW- UP, PATIENT'S SISTER VERBALIZED UNDERSTANDING.
== END 2017-07-07 11:45 | disposition home health service (06) | DRG 559 ==
PROVIDERS: ADMIT Physical Medicine & Rehabilitation Pain Medicine; ATTEND Physical Medicine & Rehabilitation Pain Medicine
DX: S32.019D Unspecified fracture of first lumbar vertebra, subsequent encounter for fracture with routine healing (principal); E43 Unspecified severe protein-calorie malnutrition; N17.0 Acute kidney failure with tubular necrosis; D68.59 Other primary thrombophilia; L03.116 Cellulitis of left lower limb; L97.929 Non-pressure chronic ulcer of unspecified part of left lower leg with unspecified severity; I13.0 Hypertensive heart and chronic kidney disease with heart failure and stage 1 through stage 4 chronic kidney disease, or unspecified chronic kidney disease; I50.9 Heart failure, unspecified; F33.0 Major depressive disorder, recurrent, mild; D64.9 Anemia, unspecified; S32.039D Unspecified fracture of third lumbar vertebra, subsequent encounter for fracture with routine healing; S22.049D Unspecified fracture of fourth thoracic vertebra, subsequent encounter for fracture with routine healing; F03.90 Unspecified dementia, unspecified severity, without behavioral disturbance, psychotic disturbance, mood disturbance, and anxiety; W19.XXXD Unspecified fall, subsequent encounter; N18.9 Chronic kidney disease, unspecified; G47.00 Insomnia, unspecified; E78.5 Hyperlipidemia, unspecified; M43.16 Spondylolisthesis, lumbar region; F41.9 Anxiety disorder, unspecified; K44.9 Diaphragmatic hernia without obstruction or gangrene; K76.89 Other specified diseases of liver; M48.04 Spinal stenosis, thoracic region; M48.061 Spinal stenosis, lumbar region without neurogenic claudication; M51.24 Other intervertebral disc displacement, thoracic region; Z79.899 Other long term (current) drug therapy; Z91.81 History of falling; R29.6 Repeated falls; R45.1 Restlessness and agitation; R27.0 Ataxia, unspecified; M85.80 Other specified disorders of bone density and structure, unspecified site
CPT/HCPCS: 36415; 70030-TC; 82306; 82652; 83735; 83970; 84100; 84155; 84165; 84443; 85025; 92523; 97110; 97112; 97116; 97165; 97530; 97535; A4217; A4663; J0696; J1644; J2543; J3370; J7040; J7050; J7060

== ENCOUNTER 2017-11-16 07:16 | Inpatient (IN) | payer MEDICARE, OTHER ==
[2017-11-16] VITALS (15 sets, daily range): BP systolic 115–187; BP diastolic 64–104
[~2017-11-16] VITALS: Ht 162.6 cm; Wt 62.8 kg
[~2017-11-16 07:16] MED LIST changes: +CEFT1FRO2 IV; +DIVA250T47 PO; -DIVA500T54 PO; +HEPA500034 SUBCUT; +HYDR-3980 PO; -LOPE1LIQ63 PO; -LORA0.5T PO; -LOSA50TA21 PO; -NEOM15OI3 TP; -POTA10TA15 PO; +SILV400C TP; +VALS80TA2 PO; +VANC1PLA10 IV; -[UNRECOGNIZED DRUG - CODE] TP
[2017-11-16] MEDS ORDERED: QUET25TA PO (07:38)
[2017-11-16] MEDS ORDERED: DOCU100C36 PO (07:38)
[2017-11-16] MEDS ORDERED: AMLO5TAB2 PO (07:38)
[2017-11-16] MEDS ORDERED: DONE10TA44 PO (07:38)
[2017-11-16] MEDS ORDERED: MIRT15TA PO (07:38)
[2017-11-16] MEDS ORDERED: QUET50TA PO (07:38)
[2017-11-16] MEDS ORDERED: LOPE2CAP40 PO (07:38)
[2017-11-16] MEDS ORDERED: MANNITOL 25% 12.5 G/50 ML VIAL IV ONE ×2 (08:00→08:39)
[2017-11-16] MEDS ORDERED: DEXAMETHASONE SOD PHOSPHATE 4 MG INJ IV ONE (08:00)
[2017-11-16] MEDS ORDERED: DEXAMETHASONE SOD PHOSPHATE 10 MG INJ ONE (08:38)
[2017-11-16 08:43] LABS: BASOPHILS % (AUTO) 0.3 % (0.0-2.0); EOSINOPHILS % (AUTO) 0.3 % (0.0-7.0); HEMATOCRIT 39.1 % (31.2-41.9); HEMOGLOBIN 13.1 g/dL (10.9-14.3); LYMPHOCYTES # (AUTO) 0.7 K/uL (20.0-40.0); LYMPHOCYTES % (AUTO) 9.6 % (20.5-51.5); MEAN CORPUSCULAR HEMOGLOBIN 29.5 uug (24.7-32.8); MEAN CORPUSCULAR HGB CONC 34 g/dL (32.3-35.6); MONOCYTES # (AUTO) 0.3 K/uL (2.0-10.0); MONOCYTES % (AUTO) 3.4 % (0.0-11.0); NEUTROPHILS # (AUTO) 6.5 K/uL (1.8-8.9); NEUTROPHILS % (AUTO) 86.4 % (38.5-71.5); PLATELET COUNT (AUTO) 271 K/uL (179-408); RED BLOOD CELL COUNT(AUTO) 4.44 MIL/uL (3.63-4.92); WHITE BLOOD COUNT (AUTO) 7.5 K/uL (3.8-11.8)
[2017-11-16 08:52] LABS: CARBON DIOXIDE 29 mmol/L (21-32); CHLORIDE 103 mmol/L (98-107); GLUCOSE 117 mg/dL (74-106); POTASSIUM 3.5 mmol/L (3.5-5.1); UREA NITROGEN, BLOOD 20 mg/dL (7-18)
[2017-11-16 08:59] LABS: ALANINE AMINOTRANSFERASE 17 U/L (14-59); ALKALINE PHOSPHATASE 81 U/L (50-136); ASPARTATE AMINOTRANSFERASE 18 U/L (15-37); BILIRUBIN,DIRECT 0.1 mg/dL (0.0-0.2); BILIRUBIN,TOTAL 0.3 mg/dL (0.2-1.0); CHOLESTEROL 170 mg/dL (<200); HDL CHOLESTEROL 114 mg/dL (40-60); TOTAL PROTEIN, SERUM 7.5 g/dL (6.4-8.2); TRIGLYCERIDES 52 MG/DL (30-150)
[2017-11-16] MEDS ORDERED: LABETALOL HCL 100 MG/20 ML VIAL IV ONE (09:30)
[2017-11-16] MEDS ORDERED: LABETALOL HCL 100 MG/20 ML VIAL ONE (09:31)
[2017-11-16] MEDS ORDERED: MANNITOL 20% IV ONE (10:00)
[2017-11-16] MEDS ORDERED: METOPROLOL TARTRATE 5 MG/5 ML VIAL IVP PRN (13:00)
[2017-11-16] MEDS ORDERED: ACETAMINOPHEN 650 MG SUPP.RECT RC PRN (13:00)
[2017-11-16] MEDS ORDERED: ONDANSETRON 4 MG/2 ML VIAL IV PRN (13:00)
[2017-11-16] MEDS ORDERED: NICARDIPINE IN NS 200 ML IV PRN (13:00)
[2017-11-16] MEDS: LEVETIRACETAM IV 500 MG in IV DEXTROSE 5% 100 ML IV SCH ×2 (13:57→20:38)
[2017-11-16] MEDS: LORAZEPAM 2 MG/1 ML VIAL IV PRN ×3 (14:24→18:32)
[2017-11-16] MEDS: POTASSIUM CHLORIDE 20 MEQ in IV D5 1/2 NS 1000 ML 1,000 ML IV PRN (16:23)
[2017-11-16] MEDS: MORPHINE SULFATE 2 MG/1 ML DISP.SYRIN IV PRN (19:07)
[2017-11-16] MEDS: DEXAMETHASONE SOD PHOSPHATE 4 MG INJ IV SCH (20:37)
[2017-11-16] MEDS: FAMOTIDINE. 20 MG/2 ML VIAL IV SCH (20:37)
[2017-11-17] VITALS (68 sets, daily range): BP systolic 100–194; BP diastolic 51–112
[2017-11-17 06:09] LABS: ALANINE AMINOTRANSFERASE 16 U/L (14-59); ALKALINE PHOSPHATASE 83 U/L (50-136); ASPARTATE AMINOTRANSFERASE 21 U/L (15-37); BILIRUBIN,TOTAL 0.4 mg/dL (0.2-1.0); CARBON DIOXIDE 30 mmol/L (21-32); CHLORIDE 101 mmol/L (98-107); GLUCOSE 140 mg/dL (74-106); MAGNESIUM 1.9 mg/dL (1.8-2.4); PHOSPHOROUS 3.1 mg/dL (2.5-4.9); TOTAL PROTEIN, SERUM 7.2 g/dL (6.4-8.2); UREA NITROGEN, BLOOD 15 mg/dL (7-18)
[2017-11-17 06:11] LABS: BASOPHILS % (AUTO) 0.1 % (0.0-2.0); HEMATOCRIT 36.5 % (31.2-41.9); HEMOGLOBIN 12.2 g/dL (10.9-14.3); LYMPHOCYTES # (AUTO) 0.7 K/uL (20.0-40.0); MEAN CORPUSCULAR HEMOGLOBIN 29.8 uug (24.7-32.8); MEAN CORPUSCULAR HGB CONC 34 g/dL (32.3-35.6); MEAN CORPUSCULAR VOLUME 88.7 fL (75.5-95.3); MONOCYTES # (AUTO) 0.7 K/uL (2.0-10.0); MONOCYTES % (AUTO) 4.7 % (0.0-11.0); NEUTROPHILS # (AUTO) 12.7 K/uL (1.8-8.9); NEUTROPHILS % (AUTO) 90.2 % (38.5-71.5); PLATELET COUNT (AUTO) 277 K/uL (179-408); RED BLOOD CELL COUNT(AUTO) 4.11 MIL/uL (3.63-4.92); WHITE BLOOD COUNT (AUTO) 14.1 K/uL (3.8-11.8)
[2017-11-17] MEDS: LEVETIRACETAM IV 500 MG in IV DEXTROSE 5% 100 ML IV SCH ×2 (08:24→20:37)
[2017-11-17] MEDS: FAMOTIDINE. 20 MG/2 ML VIAL IV SCH ×2 (08:24→20:37)
[2017-11-17] MEDS: DEXAMETHASONE SOD PHOSPHATE 4 MG INJ IV SCH ×2 (08:24→20:37)
[2017-11-17] MEDS: LORAZEPAM 2 MG/1 ML VIAL IV PRN (10:39)
[2017-11-17 11:17] LABS: *BILIRUBIN,URIN NEGATIVE (NEGATIVE); *BLOOD, URINE 2+ (NEGATIVE); *COLOR,URINE YELLOW (YELLOW); *KETONES,URINE NEGATIVE (NEGATIVE); *PROTEIN,URINE 1+ (NEGATIVE); *UROBILINOGEN,URINE 0.2 E.U./dl (NORMAL); LEUKOCYTE ESTERASE ,URINE NEGATIVE (NEGATIVE); NITRITE, URINE NEGATIVE (NEGATIVE); PH,URINE 7.5 (5.0-8.0); UGLUCOSE NEGATIVE (NEGATIVE)
[2017-11-17] MEDS: POTASSIUM CHLORIDE 20 MEQ in IV D5 1/2 NS 1000 ML 1,000 ML IV PRN (11:18)
[2017-11-17 11:36] LABS: *CLARITY,URINE HAZY (CLEAR)
[2017-11-17 11:37] LABS: BACTERIA,URINE MANY /HPF (NONE SEEN); RBC,URINE 50-80 /HPF (0-3); SQUAMOUS EPITHELIAL CELL,UR FEW /HPF (NONE SEEN)
[2017-11-17] MEDS ORDERED: NICARDIPINE IN NS 200 ML IV PRN ×2 (14:00→17:15)
[2017-11-17] MEDS: Z GUARD REMEDY PASTE 57 GM TUBE TOP PRN (20:00)
[2017-11-17] MEDS ORDERED: PANTOPRAZOLE SODIUM 40 MG VIAL IV SCH (21:00)
[2017-11-18] VITALS (56 sets, daily range): BP systolic 96–165; BP diastolic 50–97
[2017-11-18] MEDS: Z GUARD REMEDY PASTE 57 GM TUBE TOP PRN ×2 (00:01→04:00)
[2017-11-18] MEDS: MORPHINE SULFATE 2 MG/1 ML DISP.SYRIN IV PRN (01:22)
[2017-11-18] MEDS: LORAZEPAM 2 MG/1 ML VIAL IV PRN ×2 (02:51→09:45)
[2017-11-18 05:11] LABS: BASOPHILS % (AUTO) 0.3 % (0.0-2.0); HEMATOCRIT 36.7 % (31.2-41.9); HEMOGLOBIN 12.4 g/dL (10.9-14.3); LYMPHOCYTES % (AUTO) 9.5 % (20.5-51.5); MEAN CORPUSCULAR HEMOGLOBIN 29.8 uug (24.7-32.8); MEAN CORPUSCULAR HGB CONC 34 g/dL (32.3-35.6); MEAN CORPUSCULAR VOLUME 88.1 fL (75.5-95.3); MONOCYTES # (AUTO) 0.5 K/uL (2.0-10.0); MONOCYTES % (AUTO) 4.5 % (0.0-11.0); NEUTROPHILS # (AUTO) 8.6 K/uL (1.8-8.9); NEUTROPHILS % (AUTO) 85.7 % (38.5-71.5); PLATELET COUNT (AUTO) 247 K/uL (179-408); RED BLOOD CELL COUNT(AUTO) 4.17 MIL/uL (3.63-4.92); WHITE BLOOD COUNT (AUTO) 10.1 K/uL (3.8-11.8)
[2017-11-18] MEDS: POTASSIUM CHLORIDE 20 MEQ in IV D5 1/2 NS 1000 ML 1,000 ML IV PRN ×2 (05:28→21:07)
[2017-11-18 05:46] LABS: CARBON DIOXIDE 27 mmol/L (21-32); CHLORIDE 102 mmol/L (98-107); CREATININE 1.2 mg/dL (0.6-1.3); GLUCOSE 128 mg/dL (74-106); PHOSPHOROUS 3.2 mg/dL (2.5-4.9); POTASSIUM 4.2 mmol/L (3.5-5.1); UREA NITROGEN, BLOOD 20 mg/dL (7-18)
[2017-11-18] MEDS: FAMOTIDINE. 20 MG/2 ML VIAL IV SCH ×2 (08:00→21:07)
[2017-11-18] MEDS: DEXAMETHASONE SOD PHOSPHATE 4 MG INJ IV SCH ×2 (08:00→21:07)
[2017-11-18] MEDS: LEVETIRACETAM IV 500 MG in IV DEXTROSE 5% 100 ML IV SCH ×2 (08:28→21:08)
[2017-11-18] MEDS: CEFTRIAXONE 1 G in IV NORMAL SALINE 50 ML IV SCH (11:12)
[2017-11-18] MEDS: NICARDIPINE IN NS 200 ML IV PRN (22:01)
[2017-11-19] VITALS (35 sets, daily range): BP systolic 73–174; BP diastolic 45–89
[2017-11-19] MEDS: NICARDIPINE IN NS 200 ML IV PRN (02:14)
[2017-11-19] MEDS: MORPHINE SULFATE 2 MG/1 ML DISP.SYRIN IV PRN (04:59)
[2017-11-19] MEDS: FAMOTIDINE. 20 MG/2 ML VIAL IV SCH ×2 (08:04→20:41)
[2017-11-19] MEDS: DEXAMETHASONE SOD PHOSPHATE 4 MG INJ IV SCH ×2 (08:04→20:41)
[2017-11-19] MEDS: LORAZEPAM 2 MG/1 ML VIAL IV PRN ×2 (08:05→17:08)
[2017-11-19] MEDS: LEVETIRACETAM IV 500 MG in IV DEXTROSE 5% 100 ML IV SCH ×2 (08:47→20:41)
[2017-11-19] MEDS: CEFTRIAXONE 1 G in IV NORMAL SALINE 50 ML IV SCH (11:12)
[2017-11-19] MEDS: POTASSIUM CHLORIDE 20 MEQ in IV D5 1/2 NS 1000 ML 1,000 ML IV PRN (18:44)
[2017-11-19] MEDS ORDERED: ALBUTEROL SULFATE 2.5 MG/3 ML NEBU NEB PRN (22:15)
[2017-11-19] MEDS ORDERED: IPRATROPIUM BROMIDE 0.5 MG/2.5 ML NEBU NEB PRN (22:15)
[2017-11-20] MEDS: LORAZEPAM 2 MG/1 ML VIAL IV PRN (00:06)
[2017-11-20 04:00] VITALS: BP 95/65
[2017-11-20] MEDS ORDERED: CEFAZOLIN 1 G in PREMIXED 1 EACH IV SCH (08:00)
[2017-11-20] MEDS: FAMOTIDINE. 20 MG/2 ML VIAL IV SCH ×2 (08:02→20:23)
[2017-11-20] MEDS: DEXAMETHASONE SOD PHOSPHATE 4 MG INJ IV SCH ×2 (08:03→20:23)
[2017-11-20] MEDS: LEVETIRACETAM IV 500 MG in IV DEXTROSE 5% 100 ML IV SCH ×3 (08:30→21:07)
[2017-11-20] MEDS: CEFAZOLIN 1 G in PREMIXED 1 EACH IV SCH ×2 (08:55→20:23)
[2017-11-20] MEDS: POTASSIUM CHLORIDE 20 MEQ in IV D5 1/2 NS 1000 ML 1,000 ML IV PRN (11:39)
[2017-11-20 11:47] VITALS: BP 185/94
[2017-11-20 15:35] VITALS: BP 184/75
[2017-11-20] MEDS: MORPHINE SULFATE 2 MG/1 ML DISP.SYRIN IV PRN (16:31)
[2017-11-20] MEDS ORDERED: CLONIDINE-TTS 1 PATCH TD SCH (19:30)
[2017-11-20 20:53] VITALS: BP 136/68
[2017-11-21 04:00] VITALS: BP 163/74
[2017-11-21] MEDS: MORPHINE SULFATE 2 MG/1 ML DISP.SYRIN IV PRN ×2 (04:14→10:20)
[2017-11-21] MEDS: POTASSIUM CHLORIDE 20 MEQ in IV D5 1/2 NS 1000 ML 1,000 ML IV PRN (05:17)
[2017-11-21] MEDS: FAMOTIDINE. 20 MG/2 ML VIAL IV SCH (08:56)
[2017-11-21] MEDS: DEXAMETHASONE SOD PHOSPHATE 4 MG INJ IV SCH (08:56)
[2017-11-21] MEDS: CEFAZOLIN 1 G in PREMIXED 1 EACH IV SCH (08:56)
[2017-11-21] MEDS: LEVETIRACETAM IV 500 MG in IV DEXTROSE 5% 100 ML IV SCH (10:00)
[2017-11-21] MEDS ORDERED: hydrALAZINE HCL 20 MG/1 ML VIAL IV PRN (11:00)
[2017-11-21 11:40] VITALS: BP 146/72
[2017-11-21 15:54] VITALS: BP 159/74
[2017-11-21 16:13] VITALS: BP 120/50
== END 2017-11-21 16:00 | disposition hospice, inpatient (51) | DRG 64 ==
LOC: ER 07:16 → CCU 10:15 → MED 11-19 18:33
PROVIDERS: ADMIT Internal Medicine; ATTEND Internal Medicine
PROC: 02HV33Z Insertion of Infusion Device into Superior Vena Cava, Percutaneous Approach (ICD-10-PCS; principal; 2017-11-16)
PROC: B548ZZA Ultrasonography of Superior Vena Cava, Guidance (ICD-10-PCS; 2017-11-16)
DX: I61.1 Nontraumatic intracerebral hemorrhage in hemisphere, cortical (principal); G93.6 Cerebral edema; G93.49 Other encephalopathy; G81.94 Hemiplegia, unspecified affecting left nondominant side; L03.115 Cellulitis of right lower limb; D68.59 Other primary thrombophilia; G31.09 Other frontotemporal neurocognitive disorder; F02.80 Dementia in other diseases classified elsewhere, unspecified severity, without behavioral disturbance, psychotic disturbance, mood disturbance, and anxiety; G30.9 Alzheimer's disease, unspecified; Z66 Do not resuscitate; R40.2412 Glasgow coma scale score 13-15, at arrival to emergency department; I60.9 Nontraumatic subarachnoid hemorrhage, unspecified; Z74.09 Other reduced mobility; E78.5 Hyperlipidemia, unspecified; Z86.011 Personal history of benign neoplasm of the brain; T38.0X5A Adverse effect of glucocorticoids and synthetic analogues, initial encounter; Y92.230 Patient room in hospital as the place of occurrence of the external cause; I10 Essential (primary) hypertension; D72.829 Elevated white blood cell count, unspecified; G47.30 Sleep apnea, unspecified; I15.8 Other secondary hypertension; K21.9 Gastro-esophageal reflux disease without esophagitis; Z79.82 Long term (current) use of aspirin; Z86.19 Personal history of other infectious and parasitic diseases; Z91.81 History of falling
CPT/HCPCS: 36415; 36569; 70030-TC; 70450; 71045; 83735; 84100; 85025; 85730; 87077; 87086; 93005; 94664; 95819; A4663; J0360; J0690; J0696; J1100; J1953; J2060; J2150; J2270; J3480; J3490; J3590; J7060